=== PATIENT | male | born 1985 | race Two or more races ===

== ENCOUNTER 2024-09-04 12:48 | Outpatient (REF) | payer OTHER, SELFPAY ==
--- NOTE | ~2024-09-04 | XR_ITS ---
EXAMINATION: XR SHOULDER LEFT CLINICAL INFORMATION: Pain in left shoulder M25.512. COMPARISON: None TECHNIQUE: AP neutral, supraspinatus, and axillary views of the left shoulder. FINDINGS: Minimal arthrosis of the glenohumeral joint . Small marginal osteophyte noted along the inferior aspect of the humeral head Acromioclavicular joint normal. Surrounding bone and soft tissues unremarkable. XR/XR shoulder LT min 2V IMPRESSION: Minimal arthrosis of the glenohumeral joint. Electronically signed by: Luís London MD 09/08/2024 09:43 AM EST
== END 2024-09-04 12:49 | disposition home or self-care (01) ==
LOC: HO.HOSX 12:48
PROVIDERS: Visit Provider Physician Assistant
DX: M25.512 Pain in left shoulder (principal)
CPT/HCPCS: 73030

== ENCOUNTER 2024-09-04 15:02 | Outpatient (AMB) | payer OTHER, SELFPAY ==
--- NOTE | 2024-09-04 15:10 | A.OFFVIS_ITS ---
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 No hx of injury. Patient reports having pain for about 2 months. He mentions that one day he was laying on his left side and felt sharp pain in his shoulder and numbness in his left pointer finger and middle finger. Patient reports he is not having pain for a month now and his numbness has gotten better when he was taking his prenizone for two weeks. He would like to know what his x rays show. 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 He denies any injury however he reports he was laying on his left side one day and felt a sharp pain in his shoulder as well as numbness on his index and middle finger. He currently states he has not had any pain for a month now and his numbness has improved after taking prednisone for 2 weeks. 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 Review of Systems Const All systems reviewed & are unremarkable except as noted in HPI and below Physical Exam Const General: cooperative, healthy appearing, comfortable, no acute distress, well developed and alert Orientation/consciousness: patient oriented x3 HEENT Head: Yes normal to inspection, Yes normocephalic and Yes atraumatic Eyes General: appearance normal, both eyes and all related structures Resp Effort & Inspection: normal respiratory effort and able to speak in complete sentences Cardio Rate: regular rate Peripheral pulses: Peripheral pulses 2+ throughout GI Palpation (GI): Soft to palpation Skin Lesions: no lesions Rashes: no rashes Neuro General: patient oriented x3 Extrem Other: Left shoulder: Normal to inspection. Tenderness over the bicipital groove and along the deltoid region of the shoulder. Forward flexion to 175, external rotation to 90, internal rotation to S1. 5/5 RTC strength. Negative Yarbrough and cross body abduction. NVI. ? Results Reviewed Results Reviewed: Xrays were obtained in the office today and personally reviewed by me of the left shoulder negative for acute fracture or dislocations. Assessment & Plan Assessment & Plan (1) Left shoulder tendonitis: Code(s): M77.8 - Other enthesopathies, not elsewhere classified Category: Medical Plan We discussed options which include PT, NSAIDs and injections. The patient will defer on the injection today and proceed with PT and NSAIDs. If symptoms persist, she will contact me for an injection, otherwise, PRN. Orders: Orders XR shoulder LT min 2V 09/04/24 M25.512 - Pain in left shoulder PT Evaluation and Treatment 09/04/24 M77.8 - Other enthesopathies, not elsewhere classified Patient Instructions: Scribed for Nikia Khan PA-C, by Salvador Tapia durable medical equipment technician, on 09/04/2024 at 3:15 PM EST.? I, Nikia Khan PA-C, have personally reviewed and agree with the information entered by the scribe. Coding Level of Care Code New Pt Level 3 (81647) Complex EM visit Add On G2211 Diagnoses Left shoulder tendonitis M77.8
== END 2024-09-04 16:14 | disposition home or self-care (01) ==
PROVIDERS: PCP Nurse Practitioner Family; Visit Provider Physician Assistant
DX: M77.8 Other enthesopathies, not elsewhere classified (principal)
CPT/HCPCS: 99203; G2211